=== PATIENT | male | born 1995 ===

== ENCOUNTER 2016-07-01 09:01 | Observation (INO) | payer OTHER, MEDICAID, SELFPAY | END 2016-07-02 12:28 | disposition home or self-care (01) | LOC: ICU 06-10 10:36 | PROVIDERS: Admitting Provider Internal Medicine; Family Provider Internal Medicine; PCP Internal Medicine; Visit Provider Internal Medicine | DX: E87.6 Hypokalemia (principal); E43 Unspecified severe protein-calorie malnutrition; E86.0 Dehydration; N17.9 Acute kidney failure, unspecified; K92.0 Hematemesis; E87.3 Alkalosis; D62 Acute posthemorrhagic anemia; Z68.1 Body mass index [BMI] 19.9 or less, adult; F50.2 Bulimia nervosa; G40.909 Epilepsy, unspecified, not intractable, without status epilepticus; F32.9 Major depressive disorder, single episode, unspecified; F41.9 Anxiety disorder, unspecified; K21.9 Gastro-esophageal reflux disease without esophagitis; F12.90 Cannabis use, unspecified, uncomplicated | CPT/HCPCS: 36415; 36430; 74010; 74019; 80048; 80053; 80305; 81001; 82150; 83605; 83690; 83735; 84100; 84132; 85014; 85018; 85025; 85610; 85730; 86850; 86900; 86901; 86922; 87797; 93005; 93010; 99058; G0378; P9016; C9113; G0379; J1200; J2405; J3480 ==